=== PATIENT | male | born 1990 | race African-American/Black ===

== ENCOUNTER 2016-10-28 20:17 | Emergency (ER) | payer BC ==
[2016-10-28 20:26] VITALS: PULSE 85; TEMP 98; BMI 21.2
[2016-10-28 20:30] VITALS: BP 99/64
--- NOTE | 2016-10-28 20:32 | PDOC ---
History of Present Illness - General Chief Complaint: Injury Stated Complaint: R HAND MIDDLE FINGER INJURY Time Seen by Provider: 10/28/16 20:30 History Source: Patient Exam Limitations: No Limitations - History of Present Illness Initial Comments: 10/28/16 21:14 26-year-old male without any past medical history who is right hand dominant presents to the emergency department complaining of a deformity to the right third digit with 6/10 intermittent discomfort. Patient states while playing basketball this evening, he tripped and fell. He broke his fall on his outstretched right hand. He noticed an immediate deformity to his right third digit. Patient denies any extremity numbness or tingling sensation. Patient denies any head/neck or back pain. Patient denies any other complaints. Occurred: reports: just prior to arrival Past History - Past Medical History Allergies/Adverse Reactions: Allergies Allergy/AdvReac Type Severity Reaction Status Date / Time No Known Allergies Allergy Verified 10/28/16 20:19 Home Medications: Ambulatory Orders Naproxen [Naprosyn -] 500 mg PO BID PRN #14 tablet 10/19/14 Other medical history: none - Immunization History Immunization Up to Date: No - Psycho/Social/Smoking Cessation Hx Anxiety: No Suicidal Ideation: No Smoking History: Never smoked Have you smoked in the past 12 months: No Information on smoking cessation initiated: No Hx Alcohol Use: No Drug/Substance Use Hx: No Substance Use Type: None Review of Systems - Review of Systems Able to Perform ROS?: Yes Comments:: 10/28/16 21:15 Right 3rd digit +deformity +pain neg numbness/tingling Is the patient limited Swedish proficient: No *Physical Exam - Vital Signs Last Vital Signs Temp Pulse Resp BP Pulse Ox 98.0 F 85 18 99/64 100 10/28/16 20:20 10/28/16 20:20 10/28/16 20:20 10/28/16 20:20 10/28/16 20:20 - Physical Exam Comments: 10/28/16 21:15 Right 3rd digit +pip deformity +pain on palp 2 point sensation intact cap refill <2sec Reduced: F.R.O.M. neg deformity neg pain on palp cap refill <2sec ED Treatment Course - RADIOLOGY Radiology Studies Ordered: Category Date Time Status HAND- RIGHT [RAD] Stat Radiology 10/28/16 20:30 Ordered Radiograph Interpretation: 10/28/16 20:58 XR: right hand; dislocated 3rd pip xr; post reduction; neg fx/ neg dislocation Progress Note - Progress Note Progress Note: Right 3rd digit: reduced via traction *DC/Admit/Observation/Transfer Diagnosis at time of Disposition: Dislocated finger Qualifiers: Encounter type: initial encounter Qualified Code(s): S63.259A - Unspecified dislocation of unspecified finger, initial encounter - Discharge Dispostion Disposition: HOME Condition at time of disposition: Stable Admit: No - Referrals Referrals: Willie Brownlee MD [Staff Physician] - - Patient Instructions Printed Discharge Instructions: DI for Finger Dislocation Additional Instructions: Rest elevate ice: 20 mins on alternating with 20 mins off for 48 hours while awake Tylenol alternating with motrin as needed for pain Return for any numbness/tingling sensation
--- NOTE | 2016-10-28 20:41 | PDOC ---
*Physical Exam - Vital Signs Last Vital Signs Temp Pulse Resp BP Pulse Ox 98.0 F 85 18 99/64 100 10/28/16 20:20 10/28/16 20:20 10/28/16 20:20 10/28/16 20:20 10/28/16 20:20 Medical Decision Making - Medical Decision Making 10/28/16 20:32 Patient seen and evaluated with the nurse practitioner. I agree with the overall evaluation, assessment, and management with the following summary of visit: 26y/o M with isolated R middle finger injury after trip and fall while playing basketball. Right middle finger PIP joint deformity with likely posterior displacement, NVI. Initial BP at triage low, now improved without intervention. Remainder of trauma exam normal, neuro intact 26y/o M with R middle finger PIP dislocation, r/o fracture. likely vagal response 2/2 pain, improved. - digital block and reduction/splint. - pre and post xrays
== END 2016-10-28 21:20 | disposition home or self-care (01) ==
LOC: JER 20:17
PROC: 0RSWXZZ Reposition Right Finger Phalangeal Joint, External Approach (ICD-10-PCS; principal; 2016-10-28)
DX: S63.282A Dislocation of proximal interphalangeal joint of right middle finger, initial encounter (principal); W18.39XA Other fall on same level, initial encounter; Y93.67 Activity, basketball; Y92.310 Basketball court as the place of occurrence of the external cause; Y99.8 Other external cause status
CPT/HCPCS: 73130-TC-RT; 73140-TC-RT; 99281-25

== ENCOUNTER 2022-01-16 22:13 | Observation (INO) | payer OTHER, BC ==
[2022-01-17 01:21] LABS: EOS % 1.2 % (0-4.5); HEMATOCRIT 43.5 % (35.4-49); HEMOGLOBIN 14.9 GM/dL (11.7-16.9); LYMPH % 19.9 % (8-40); MCH 33.7 pg (25.7-33.7); MCHC 34.3 g/dl (32.0-35.9); MEAN CELL VOLUME 98.4 fl (80-96); MEAN PLT VOLUME 8.9 fl (7.5-11.1); MONO % 13.8 % (3.8-10.2); NEUT % 64.1 % (42.8-82.8); PLATELET COUNT 217 10^3/uL (134-434); RBC 4.42 M/mm3 (4.00-5.60); RDW 12.5 % (11.9-15.9); WHITE BLOOD COUNT 5.1 K/mm3 (4.0-10.0)
[2022-01-17 01:34] LABS: CHLORIDE 103 mmol/L (98-107); SODIUM 139 mmol/L (136-145)
[2022-01-17 01:36] LABS: ALBUMIN 3.9 g/dl (3.4-5.0); ANION GAP 8 MMOL/L (8-16); CALCIUM 9.3 mg/dL (8.5-10.1); CO2 28 mmol/L (21-32)
[2022-01-17 01:37] LABS: BLOOD UREA NITROGEN 12.8 mg/dL (7-18); GLUCOSE,RANDOM 105 mg/dL (74-106)
[2022-01-17 01:39] LABS: CREATININE 0.9 mg/dL (0.55-1.3); SGOT/AST 38 U/L (15-37)
[2022-01-17 01:40] LABS: SGPT/ALT 43 U/L (13-61)
[2022-01-17 01:41] LABS: BILIRUBIN,TOTAL 1.3 mg/dL (0.2-1); TOT PROT 7.2 g/dl (6.4-8.2)
[2022-01-17 01:42] LABS: ALK PHOS 46 U/L (45-117)
[2022-01-17 03:25] LABS: MAGNESIUM 2.2 mg/dL (1.8-2.4)
[2022-01-17 03:29] LABS: PHOSPHOROUS 4.5 mg/dL (2.5-4.9)
[2022-01-17 06:19] LABS: BASO % 0.6 % (0-2.0); HEMATOCRIT 43.8 % (35.4-49); HEMOGLOBIN 14.6 GM/dL (11.7-16.9); LYMPH % 27.9 % (8-40); MCH 32.7 pg (25.7-33.7); MCHC 33.2 g/dl (32.0-35.9); MEAN CELL VOLUME 98.4 fl (80-96); MEAN PLT VOLUME 9.6 fl (7.5-11.1); MONO % 14.8 % (3.8-10.2); NEUT % 54.7 % (42.8-82.8); PLATELET COUNT 220 10^3/uL (134-434); RBC 4.45 M/mm3 (4.00-5.60); RDW 12.4 % (11.9-15.9); WHITE BLOOD COUNT 4.9 K/mm3 (4.0-10.0)
[2022-01-17 06:42] LABS: CHOLESTEROL 157 mg/dL (50-200); TRIGLYCERIDES 44 mg/dL (0-150)
[2022-01-17 06:43] LABS: LDL CHOLESTEROL (ONLY SJRH) 39 mg/dL (5-100)
[2022-01-17 06:44] LABS: CALCIUM 9.2 mg/dL (8.5-10.1)
[2022-01-17 06:45] LABS: ALBUMIN 3.8 g/dl (3.4-5.0); BLOOD UREA NITROGEN 13.8 mg/dL (7-18); HDL CHOLESTEROL 103 mg/dL (40-60); MAGNESIUM 2.3 mg/dL (1.8-2.4)
[2022-01-17 06:48] LABS: CREATININE 0.8 mg/dL (0.55-1.3); PHOSPHOROUS 5.1 mg/dL (2.5-4.9)
[2022-01-17 06:49] LABS: BILIRUBIN,TOTAL 1.7 mg/dL (0.2-1)
[2022-01-17 06:50] LABS: TOT PROT 6.9 g/dl (6.4-8.2)
[2022-01-17] MEDS ORDERED: ENOXAPARIN NA (PORCINE) 40 MG/0.4 ML DISP.SYRIN SQ ONE (09:04)
[2022-01-17] MEDS: ENOXAPARIN NA (PORCINE) 40 MG/0.4 ML DISP.SYRIN SQ SCH (11:00)
[2022-01-17 13:42] LABS: COCAINE, UR NEGATIVE (NEGATIVE); OPIATES, URI NEGATIVE (NEGATIVE)
[2022-01-17 13:43] LABS: METHADONE, UR NEGATIVE (NEGATIVE); PHENCYCLIDINE,URINE NEGATIVE (NEGATIVE); URINE BARBITURATES NEGATIVE (NEGATIVE)
[2022-01-17 13:46] LABS: URINE BENZODIAZEPINES NEGATIVE (NEGATIVE)
[2022-01-17 13:51] LABS: URINE AMPHETAMINES NEGATIVE (NEGATIVE)
[2022-01-17 18:05] VITALS: BMI 20.5
[2022-01-17 20:28] LABS: EPI CELLS 9 /uL (0-25.1); HYALINE CASTS 2 /uL (0-3.1); PH,URINE 6.5 (5.0-8.0); URINE APPEARANCE CLEAR; URINE BACTERIA 40 /uL (0-1359); URINE BILIRUBIN NEGATIVE (NEGATIVE); URINE COLOR DK YELLOW; URINE GLUCOSE (UA) NEGATIVE (NEGATIVE); URINE KETONE TRACE (NEGATIVE); URINE LEUK ESTERASE TRACE (NEGATIVE); URINE NITRITE NEGATIVE (NEGATIVE); URINE PROTEIN NEGATIVE (NEGATIVE); URINE RBC 1 /uL (0-23.9); URINE WBC 12 /uL (0-25.8)
[2022-01-17 21:31] VITALS: TEMP 98.2
[2022-01-18 07:47] LABS: BASO % 1.3 % (0-2.0); HEMATOCRIT 43.2 % (35.4-49); HEMOGLOBIN 14.8 GM/dL (11.7-16.9); LYMPH % 44.3 % (8-40); MCH 33.8 pg (25.7-33.7); MCHC 34.2 g/dl (32.0-35.9); MEAN CELL VOLUME 98.7 fl (80-96); MONO % 15.6 % (3.8-10.2); NEUT % 33.8 % (42.8-82.8); PLATELET COUNT 213 10^3/uL (134-434); RBC 4.38 M/mm3 (4.00-5.60); RDW 12.2 % (11.9-15.9); WHITE BLOOD COUNT 3.3 K/mm3 (4.0-10.0)
[2022-01-18 08:01] VITALS: BP 121/70; PULSE 66; RESP 20
[2022-01-18 08:09] LABS: CALCIUM 9.3 mg/dL (8.5-10.1)
[2022-01-18 08:10] LABS: BLOOD UREA NITROGEN 10.3 mg/dL (7-18)
[2022-01-18 08:13] LABS: CREATININE 0.9 mg/dL (0.55-1.3)
[2022-01-18] MEDS: ENOXAPARIN NA (PORCINE) 40 MG/0.4 ML DISP.SYRIN SQ SCH (09:52)
== END 2022-01-18 15:50 | disposition home or self-care (01) ==
LOC: JER 22:13 → JERBED 01-17 02:25 → J4W 01-17 17:53
PROVIDERS: ADMIT Internal Medicine; ATTEND Internal Medicine
DX: R55 Syncope and collapse (principal); R61 Generalized hyperhidrosis; R11.0 Nausea; R23.2 Flushing; R42 Dizziness and giddiness
CPT/HCPCS: 36415; 70450-TC; 71045-TC-FY; 80048; 80053; 80061; 80307; 81003; 82308; 82550; 82553; 83735; 84100; 84439; 84443; 84484; 85025; 93005; 93010; 93306-TC; 93880-TC; 99285-25; C9803-CS; G0378; U0003; U0005